=== PATIENT | male | born 1985 | race Caucasian/White ===

== ENCOUNTER 2017-10-08 16:24 | Emergency (ER) | payer BC ==
[~2017-10-08] VITALS: Ht 180.3 cm; Wt 99.8 kg
[2017-10-08] MEDS ORDERED: KETOROLAC TROMETHAMINE 30 MG INJ IVP ONE (16:48)
[2017-10-08] MEDS ORDERED: ONDANSETRON IV *ER 4 MG/2 ML VIAL IV ONE (17:00)
[2017-10-08] MEDS ORDERED: MORPHINE SULFATE 2 MG/1 ML DISP.SYRIN IV ONE (17:00)
[2017-10-08] MEDS ORDERED: IV NS 1000 ML 1,000 ML IV ONE (17:00)
[2017-10-08] MEDS ORDERED: MORPHINE SULFATE 2 MG/1 ML DISP.SYRIN ONE (17:09)
[2017-10-08] MEDS ORDERED: KETOROLAC TROMETHAMINE 30 MG INJ ONE (17:09)
--- NOTE | 2017-10-08 17:09 | NUR ---
LABS DRAWN/URINE SENT, 1L 0.9NS BOLUS INFUSING, MEDS ADMINISTERED.PT POSITIONED FOR COMFORT.
[2017-10-08 17:15] LABS: BASOPHILS % (AUTO) 0.4 % (0.0-2.0); EOSINOPHILS # (AUTO) 0.1 K/uL (0.0-0.7); HEMATOCRIT 43.6 % (36.7-47.1); HEMOGLOBIN 15.5 g/dL (12.5-16.3); LYMPHOCYTES # (AUTO) 1.4 K/uL (20.0-40.0); LYMPHOCYTES % (AUTO) 16.5 % (20.5-51.5); MEAN CORPUSCULAR HEMOGLOBIN 28.4 uug (23.8-33.4); MEAN CORPUSCULAR HGB CONC 36 g/dL (32.5-36.3); MEAN CORPUSCULAR VOLUME 79.7 fL (73.0-96.2); MONOCYTES # (AUTO) 0.4 K/uL (2.0-10.0); MONOCYTES % (AUTO) 4.2 % (0.0-11.0); NEUTROPHILS # (AUTO) 6.6 K/uL (1.8-8.9); NEUTROPHILS % (AUTO) 77.9 % (38.5-71.5); PLATELET COUNT (AUTO) 188 K/uL (152-348); RED BLOOD CELL COUNT(AUTO) 5.47 MIL/uL (4.06-5.63); WHITE BLOOD COUNT (AUTO) 8.5 K/uL (3.6-10.2)
[2017-10-08 17:16] LABS: *BILIRUBIN,URIN NEGATIVE (NEGATIVE); *BLOOD, URINE 3+ (NEGATIVE); *CLARITY,URINE SLIGHTLY CLOUDY (CLEAR); *COLOR,URINE YELLOW (YELLOW); *KETONES,URINE 1+ (NEGATIVE); *PROTEIN,URINE 1+ (NEGATIVE); LEUKOCYTE ESTERASE ,URINE NEGATIVE (NEGATIVE); NITRITE, URINE NEGATIVE (NEGATIVE); PH,URINE 8.5 (5.0-8.0); UGLUCOSE NEGATIVE (NEGATIVE)
[2017-10-08] MEDS ORDERED: ONDANSETRON 4 MG/2 ML VIAL ONE (17:22)
[2017-10-08 17:24] LABS: RBC,URINE 20-50 /HPF (0-3); WBC,URINE 0-3 /HPF (0-3)
[2017-10-08 17:25] LABS: BACTERIA,URINE FEW /HPF (NONE SEEN); SQUAMOUS EPITHELIAL CELL,UR FEW /HPF (NONE SEEN)
[2017-10-08 17:34] LABS: BILIRUBIN,TOTAL 0.5 mg/dL (0.2-1.0); CREATININE 1.3 mg/dL (0.6-1.3); TOTAL PROTEIN, SERUM 8.2 g/dL (6.4-8.2)
--- NOTE | 2017-10-08 19:04 | NUR ---
MSE COMPLETED, IV D/C'D INTACT, ACI/COPY OF TESTS/RX X3 GIVEN. PT AMBULATED W/O DIFF, STATED NO PAIN.
[2017-10-08 19:05] VITALS: BP 122/85
== END 2017-10-08 19:06 | disposition home or self-care (01) ==
LOC: ER 16:29
DX: N20.1 Calculus of ureter (principal)
CPT/HCPCS: 36415; 74176; 80053; 81001; 85025; 96361; 96374; 96375; 99285; A4663; J1885; J2270; J2405; J7030